=== PATIENT | female | born 1955 | race Caucasian/White ===

== ENCOUNTER 2016-11-20 17:22 | Emergency (ER) | payer OTHER ==
[~2016-11-20 17:22] MED LIST: ASPIR 8181 MG; DILTIAZEM HCL; GLUCOPHAGE XR500 MG; HYDROCHLOROTHIA25 MG; LANTUS100 U/ML; METOPROLOL TART25 MG; NOVOLOG100 U/M; PROVERA10 MG; TOPROL XL50 MG; VASOTEC20 MG
[2016-11-20] MEDS ORDERED: LEVEMIR FL100 UNIT/2 SC ×2 (17:35)
[2016-11-20] MEDS ORDERED: HUMALOG100 UNIT/2 SC ×2 (17:36→17:37)
[2016-11-20] MEDS ORDERED: GLUCOPHAGE XR500 M1 PO (17:37)
== END 2016-11-20 17:48 ==
LOC: EDMED 17:22
DX: S16.1XXA Strain of muscle, fascia and tendon at neck level, initial encounter (principal); E11.9 Type 2 diabetes mellitus without complications; Z79.4 Long term (current) use of insulin; V49.40XA Driver injured in collision with unspecified motor vehicles in traffic accident, initial encounter; Y92.410 Unspecified street and highway as the place of occurrence of the external cause